=== PATIENT | male | born 1995 | race Caucasian/White ===

== ENCOUNTER 2020-07-20 12:30 | Day surgery (SDC) | payer BC ==
[~2020-07-20 12:30] MED LIST: Dexamethasone 20 MG/5 ML VIAL ONE; Ketorolac Tromethamine 30 MG/ML VIAL ONE; Lidocaine 1% PF 5 ML VIAL ONE; Ondansetron PF 4 MG/2 ML Vial ONE; PROPOFOL 200 MG/20 ML VIAL ONE
[2020-07-20 15:10] LABS: Bilirubin Negative (Negative); Blood, Urine 3+ (Negative); Clarity Clear (Clear); Glucose, Urine (Dipstick) Normal (Negative); Ketone, Urine Negative (Negative); Leukocyte 500 Leu/uL (Negative); Nitrite Negative (Negative); Protein, Urine (Dipstick) 20 mg/dL (Neg-Trace); RBC/HPF 21-50 HPF (0-3); Specific Gravity, Urine 1.005 (1.002-1.036); Squamous Epithelial None Seen HPF (0-3); Urobilinogen Normal mg/dL (Less than 2); WBC/HPF 21-50 HPF (0-3); pH, Urine 7.5 (5.0-9.0)
[2020-07-20 15:13] LABS: Bacteria/HPF 1+ HPF (None Seen)
--- NOTE | 2020-07-20 15:19 | RAD ---
KUB INDICATION: Concern for foreign body within the urinary tract COMPARISON: None FINDINGS: Bowel gas: Nonspecific but without overt appearance of obstruction. Lung bases: Not included in the [id number] Additional findings: No suspicious radiopaque foreign body is evident. Osseous structures: No acute osseous abnormality is demonstrated. IMPRESSION: 1. No acute abnormality.
--- NOTE | 2020-07-20 16:05 | CT ---
CT pelvis noncontrast HISTORY: Urinary tract foreign body. FINDINGS: A radiolucent tubing, estimated at 0.7 cm diameter and 24 cm length is coiled in an axial p nacho in the upper portion urinary bladder, with the distal ends overlapping by approximately 3 cm on the right side. No other radiopaque or lucent foreign bodies are evident. No free fluid visible wi thin the pelvis. The abdomen was not imaged. No acute osseous abnormalities are demonstrated. IMPRESSION : Low density tubing within the urinary bladder as detailed above.
[2020-07-20 18:44] LABS: SARS-CoV-2 NAA Rapid Test Not Detected (NotDetected)
[2020-07-20] MEDS ORDERED: Midazolam HCl 2 mg/2 ml Vial ONE (19:12)
[2020-07-20] MEDS ORDERED: Fentanyl 100 MCG/2 ML VIAL ONE (19:12)
[2020-07-20] MEDS ORDERED: Levofloxacin 500 mg/D5W 100 ml Premix Bag ONE (19:32)
[2020-07-20] MEDS ORDERED: Bupivacaine 0.25% HCL 30 ML VIAL ONE (19:41)
[2020-07-20] MEDS ORDERED: EPINEPHrine 1 MG/ML AMP ONE (19:41)
--- NOTE | 2020-07-20 19:46 | HP ---
REASON FOR CONSULTATION: Urethral foreign object, now bladder foreign object. HISTORY OF PRESENT ILLNESS: Dougie Rogers is a 24-year-old white male, [employer] student who is off this semester with a complaint of a lost urethral foreign object. The patient was placing a long rubber fidget toy in his urethra today and lost control of it and it subsequently retracted into apparently the bladder. The patient reports bladder discomfort. This is the first fidget toy he has lost in his urethra while placing them there for stimulation. ALLERGIES: NO KNOWN DRUG ALLERGIES. PAST MEDICAL HISTORY: Depression and attention deficit disorder. PAST SURGICAL HISTORY: None. MEDICATIONS: Include sertraline and vitamins. FAMILY MEDICAL HISTORY: Negative for history of urologic disease. SOCIAL HISTORY: Mr. Constantino is a student at [employer], but is not currently enrolled. He denies cigarette smoking and anything other than social drinking. He does not report any illicit drug use. PHYSICAL EXAMINATION: GENERAL: This is a pleasant, awake, alert white male. HEAD, EYES, EARS, NOSE, AND THROAT: Extraocular movements are intact. Sclerae are anicteric. NECK: Supple. LUNGS: Clear to auscultation bilaterally. CARDIAC: Regular rate and rhythm. ABDOMEN: Soft, moderately obese, and nontender. There is tenderness in the suprapubic area on the abdomen. BACK: No complaints of flank pain. GENITOURINARY: Testes appear present bilaterally in the scrotum. Phallus is circumcised. There is no gross blood per urethra, though the patient reports gross hematuria. Urine present in the room has a pink tinge to it, but is not otherwise grossly bloody. No clots are observed. Digital rectal examination is deferred. EXTREMITIES: Appear within normal limits. RADIOLOGIC STUDIES: A plain film of the patient's abdomen was viewed and this appears to contain a worm like object within the patient's bladder. A CT scan of the abdomen and pelvis was performed and shows a low-density object in the patient's bladder. LABORATORY STUDIES: The patient's urinalysis shows 3+ blood, 500 leukocyte esterase units, 21 to 50 red cells per high-power field and 21-50 white cells. Urine bacteria is 1+. There are no other laboratories available. ASSESSMENT: Urethral, now bladder foreign object. PLAN: Will be for cystoscopic evaluation for urethral trauma secondary to foreign object introduction by patient into his urethra. Secondarily, removal of the foreign object either by cystoscopic means or by cystotomy. The patient signed informed written consent for procedures as noted. He is of consent age. His questions were answered. Over 50 minutes of initial evaluation, consultation, assessment time was spent in the assessment of this patient in the emergency department today. Job ID: [id number]
[2020-07-20] MEDS ORDERED: Gentamicin 80 MG/2 ML VIAL ONE (20:03)
--- NOTE | 2020-07-20 22:56 | OP ---
DATE OF PROCEDURE: 07/20/2020 PREOPERATIVE DIAGNOSES: 1. Self placed urethral/bladder foreign object. 2. Hematuria. POSTOPERATIVE DIAGNOSES: 1. Self placed urethral/bladder foreign object. 2. Hematuria. HISTORY OF PRESENT ILLNESS: Dougie Rogers is a 24-year-old white male, [employer] student, who placed a urethral foreign object consisting of what he describes as a fidget toy in his urethra. This became unretrievable and was subsequently lost, he believes into his bladder. The patient has a history of attention deficit disorder and depression. He underwent CT scanning as well as plain film imaging today, which demonstrated the presence of a foreign object in his bladder. Based on those findings, he opted to proceed to the operating room for cystoscopy with foreign object removal versus a cystotomy. ANESTHESIA: General by LMA. ANTIBIOTICS: Intravenous Levaquin 500 mg administered IV and 80 mg of intravesical gentamicin administered during the course of the procedure. SPECIMEN: A urethral foreign object consisting of a piece of rubber measuring up to 20 cm in length x 0.5 cm was recovered using cystoscopic methodology. [employer] SURGEON: None. ESTIMATED BLOOD LOSS: 0 mL. DESCRIPTION OF PROCEDURE: The patient was properly identified in the emergency department. He had a negative COVID test, was subsequently transported to the operative suite, placed in supine position. General anesthesia was established using LMA airway. The patient was repositioned in the supine lithotomy position, underwent cystoscopic evaluation initially using a 22-Belarusian cystoscope sheath and a 30-degree optic. The patient's urethra had some trauma from previous foreign object application. Presumably, there were scars of various ages. The patient's prostatic urethra and urinary sphincter appeared to be intact. The patient's bladder had multiple areas of redness and some bleeding active. The patient's urethral/bladder foreign object was fully in the bladder at exam and we identified this initially with a 30-degree optic lying anterior left position as seen on CT. We had initially attempted basket recovery using a Zero tip Nitinol basket, which was not successful in that position. We replaced the rigid cystoscope with an offset scope, so that we could use a more rigid retrieval device. He was then encircled (Cook device) to recover the now bladder foreign object. This was recovered intact. There were no other foreign objects identified in the patient's bladder. During jones endoscopic evaluation, the patient's ureteric orifices appeared to be free of any kind of abnormality. There were no diverticular tears in the patient's bladder itself. We drained the patient's bladder at the close of procedure using a red rubber catheter. A urine specimen was obtained at the initiation of the procedure and was utilized for culture. The patient's bladder was completely drained and then filled with 80 mg of gentamicin intravesically. Catheter was removed leaving the gentamicin in place for intravesical treatment of the patient's presumed bladder infection. The patient was returned to full lithotomy position. He was awakened and LMA airway removed in the operative suite. The patient had sequential compression devices present at induction of anesthesia and did not require open surgical exploration or any other treatments. Job ID: [id number]
== END 2020-07-20 21:49 | disposition home or self-care (01) ==
LOC: ERS 12:30 → SDC/OP 19:00
PROVIDERS: ATTEND Urology
PROC: 0TCD8ZZ Extirpation of Matter from Urethra, Via Natural or Artificial Opening Endoscopic (ICD-10-PCS; principal; 2020-07-20)
DX: T19.1XXA Foreign body in bladder, initial encounter (principal); F90.9 Attention-deficit hyperactivity disorder, unspecified type; F41.9 Anxiety disorder, unspecified; F32.9 Major depressive disorder, single episode, unspecified; Z79.899 Other long term (current) drug therapy; Z88.2 Allergy status to sulfonamides; Z20.822 Contact with and (suspected) exposure to COVID-19
CPT/HCPCS: 72192; 74018; 81003; 81015; 87070; 87205; 88300; J0171; J1100; J1580; J1885; J1956; J2250; J2405; J2704; J3010; S0020; U0002